=== PATIENT | male | born 1965 | race Two or more races ===

== ENCOUNTER 2024-08-29 18:37 | Inpatient (IN) | payer OTHER ==
[~2024-08-29] VITALS: Ht 182.9 cm; Wt 104.8 kg
[2024-08-29] MEDS ORDERED: OxyCODONE HCL 5 MG IR TABLET PO PRN (20:15)
[2024-08-29] MEDS: SENNOSIDES 8.6 MG TABLET PO SCH (20:54)
[2024-08-29] MEDS: DOCUSATE SODIUM 100 MG CAPSULE PO SCH (20:54)
[2024-08-29] MEDS: ETHYL ALCOHOL 62% ANTISEPTIC NASAL SANITIZER 0.6 ML AMPUL NASAL SCH (21:00)
[2024-08-29] MEDS: LevETIRAcetam 500 MG TABLET PO SCH (21:01)
[2024-08-29] MEDS: DEXAMETHASONE 4 MG TABLET PO SCH (21:32)
[2024-08-29] MEDS: ACETAMINOPHEN 325 MG TABLET PO PRN (21:47)
[2024-08-29 23:54] VITALS: BP 151/66; PULSE 50; RESP 18; O2SAT 98
[2024-08-30 01:20] VITALS: BP 107/72; PULSE 51; RESP 18; O2SAT 94
[2024-08-30 01:27] VITALS: O2SAT 94
[2024-08-30] MEDS: MELATONIN 5 MG TABLET PO PRN (01:51)
[2024-08-30 02:09] VITALS: O2SAT 98
[2024-08-30 08:14] LABS: BASOPHILS % (AUTO) 0.7 % (0.0-2.0); EOSINOPHILS % (AUTO) 0 % (1.0-6.0); HEMATOCRIT 43.9 % (41-53); HEMOGLOBIN 13.6 g/dL (13.5-17.5); LYMPHOCYTES # (AUTO) 0.9 K/uL (1.0-4.8); LYMPHOCYTES % (AUTO) 4.7 % (22.0-44.0); MEAN CORPUSCULAR HEMOGLOBIN 21.6 pg (26.0-34.0); MEAN CORPUSCULAR HGB CONC 31.1 G/dL (31.0-37.0); MEAN CORPUSCULAR VOLUME 69 fL (80-100); MONOCYTES # (AUTO) 1.6 K/uL (0.1-1.0); NEUTROPHILS # (AUTO) 17.3 K/uL (1.8-7.7); PLATELET COUNT (AUTO) 265 K/uL (150-450); RED BLOOD CELL COUNT(AUTO) 6.32 MIL/uL (4.50-5.90)
[2024-08-30 08:15] LABS: NEUTROPHILS % (AUTO) 86.6 % (40.0-70.0)
[2024-08-30 08:20] VITALS: BP 124/79; PULSE 53; RESP 18; TEMP 97.8; O2SAT 97
[2024-08-30 08:29] LABS: ALANINE AMINOTRANSFERASE 35 U/L (12-78); ALBUMIN 2.8 g/dL (3.4-5.0); ALKALINE PHOSPHATASE 67 U/L (46-116); ANION GAP 6 mmol/L (8-16); ASPARTATE AMINOTRANSFERASE 13 U/L (15-37); BILIRUBIN,TOTAL 0.6 mg/dL (0.1-1.0); CALCIUM, TOTAL 8.6 mg/dL (8.8-10.5); CARBON DIOXIDE 27 mmol/L (22-29); CHLORIDE 105 mmol/L (98-107); CREATININE 0.86 mg/dL (0.60-1.30); GLOMERULAR FILTR. RATE CALC > 60 mL/min (>60); GLUCOSE,RANDOM 126 mg/dL (70-110); POTASSIUM 4.4 mmol/L (3.5-5.1); SODIUM SERUM 138 mmol/L (136-145); TOTAL PROTEIN, SERUM 6.3 g/dL (6.4-8.2); UREA NITROGEN, BLOOD 38 mg/dL (7-18)
[2024-08-30 10:07] VITALS: O2SAT 99
[2024-08-30] MEDS: LIDOCAINE 5% TRANSDERMAL PATCH TD SCH (11:46)
[2024-08-30 20:00] VITALS: BP 117/72; PULSE 55; RESP 20; TEMP 97.5; O2SAT 97
[2024-08-30] MEDS: -LIDODERM PATCH NOTE- MISC SCH (21:03)
[2024-08-31 07:00] LABS: GLUCOMETER DEV NAME(LOC) 2WR.1D; GLUCOSE,POINT OF CARE 150 MG/DL (70-110)
[2024-08-31 08:20] VITALS: BP 116/72; PULSE 56; RESP 18; TEMP 98; O2SAT 99
[2024-08-31 15:38] VITALS: O2SAT 99
[2024-08-31 20:00] VITALS: O2SAT 96
[2024-09-01 03:40] VITALS: O2SAT 96
[2024-09-01 08:00] VITALS: BP 114/68; PULSE 50; RESP 18; TEMP 97.9; O2SAT 97
[2024-09-01 08:05] VITALS: PULSE 62
[2024-09-01] MEDS: DEXAMETHASONE 4 MG TABLET PO SCH (08:44)
[2024-09-01 20:18] VITALS: BP 107/60; PULSE 58; RESP 18; TEMP 97.7; O2SAT 95
[2024-09-02 03:58] VITALS: O2SAT 95
[2024-09-02 07:03] LABS: ANION GAP 4 mmol/L (8-16); CALCIUM, TOTAL 8.5 mg/dL (8.8-10.5); CARBON DIOXIDE 28 mmol/L (22-29); CHLORIDE 103 mmol/L (98-107); CREATININE 0.78 mg/dL (0.60-1.30); GLOMERULAR FILTR. RATE CALC > 60 mL/min (>60); GLUCOSE,RANDOM 129 mg/dL (70-110); POTASSIUM 4.7 mmol/L (3.5-5.1); SODIUM SERUM 135 mmol/L (136-145); UREA NITROGEN, BLOOD 33 mg/dL (7-18)
[2024-09-02 07:04] LABS: EOSINOPHILS % (AUTO) 0.1 % (1.0-6.0); HEMATOCRIT 45.2 % (41-53); HEMOGLOBIN 13.8 g/dL (13.5-17.5); LYMPHOCYTES # (AUTO) 0.6 K/uL (1.0-4.8); LYMPHOCYTES % (AUTO) 3.2 % (22.0-44.0); MEAN CORPUSCULAR HEMOGLOBIN 21.1 pg (26.0-34.0); MEAN CORPUSCULAR HGB CONC 30.4 G/dL (31.0-37.0); MEAN CORPUSCULAR VOLUME 69 fL (80-100); MONOCYTES # (AUTO) 1.2 K/uL (0.1-1.0); MONOCYTES % (AUTO) 6.3 % (2.0-9.0); NEUTROPHILS # (AUTO) 17.3 K/uL (1.8-7.7); PLATELET COUNT (AUTO) 232 K/uL (150-450); RED BLOOD CELL COUNT(AUTO) 6.52 MIL/uL (4.50-5.90); RED CELL DISTRIBUTION WIDTH 15.1 % (11.5-14.5); WHITE BLOOD COUNT (AUTO) 19.1 K/uL (4.5-11.0)
[2024-09-02 07:10] LABS: NEUTROPHILS % (AUTO) 90.4 % (40.0-70.0)
[2024-09-02 08:00] VITALS: BP 106/67; PULSE 42; RESP 19; TEMP 97.6; O2SAT 98
[2024-09-02 09:17] LABS: RBC MORPHOLOGY COMMENT ABNORMAL RBC MORPH
[2024-09-02] MEDS: FAMOTIDINE 20 MG TABLET PO SCH (15:13)
[2024-09-02 20:45] VITALS: BP 112/54; PULSE 57; RESP 18; TEMP 97.6; O2SAT 96
[2024-09-02 22:48] VITALS: O2SAT 96
[2024-09-03 08:00] VITALS: BP 106/67; PULSE 53; RESP 18; TEMP 97.5; O2SAT 96
[2024-09-03] MEDS: DOCUSATE SODIUM 250 MG CAPSULE PO SCH (08:33)
[2024-09-03] MEDS: DICLOFENAC SODIUM 1% 100 GM GEL [2GM] TP SCH (14:59)
[2024-09-03 20:10] VITALS: BP 109/60; PULSE 52; RESP 18; TEMP 98.6; O2SAT 96
[2024-09-03 21:55] VITALS: O2SAT 96
[2024-09-04 08:00] VITALS: BP 114/70; PULSE 54; RESP 17; TEMP 97.8; O2SAT 97
[2024-09-04] MEDS: DEXAMETHASONE 4 MG TABLET PO SCH (08:10)
[2024-09-04] MEDS: DOCUSATE SODIUM 283 MG/5 ML MINI-ENEMA PR PRN (17:39)
[2024-09-04] MEDS: SENNOSIDES 8.6 MG TABLET PO SCH (20:25)
[2024-09-04] MEDS: TraZODone HCL 50 MG TABLET PO SCH (20:26)
[2024-09-04 22:21] VITALS: O2SAT 98
[2024-09-04 22:37] VITALS: BP 114/74; PULSE 54; RESP 18; TEMP 97.2; O2SAT 98
[2024-09-05 08:00] VITALS: BP 104/48; PULSE 53; RESP 18; TEMP 97.8; O2SAT 99
[2024-09-05] MEDS: ENOXAPARIN SODIUM 30 MG/0.3 ML PF SYRINGE SQ SCH (10:02)
[2024-09-05 20:00] VITALS: BP 121/75; PULSE 55; RESP 18; TEMP 97.7; O2SAT 95
[2024-09-06 02:43] VITALS: O2SAT 96
[2024-09-06 08:00] VITALS: BP 108/65; PULSE 57; RESP 17; TEMP 97.9; O2SAT 95
[2024-09-06 20:00] VITALS: BP 113/62; PULSE 62; RESP 18; TEMP 97.5; O2SAT 97
[2024-09-06 21:00] VITALS: O2SAT 97
[2024-09-07 09:33] VITALS: BP 112/63; PULSE 49; RESP 19; TEMP 98.2; O2SAT 97
[2024-09-07 10:43] VITALS: O2SAT 97
[2024-09-07 20:01] VITALS: BP 122/73; PULSE 55; RESP 18; TEMP 98.3; O2SAT 94
[2024-09-07 22:52] VITALS: O2SAT 94
[2024-09-08 08:00] VITALS: BP 117/62; PULSE 48; RESP 18; TEMP 98.1; O2SAT 98
[2024-09-08 08:57] LABS: BASOPHILS % (AUTO) 0.4 % (0.0-2.0); EOSINOPHILS % (AUTO) 2.1 % (1.0-6.0); HEMATOCRIT 43.1 % (41-53); HEMOGLOBIN 13.3 g/dL (13.5-17.5); LYMPHOCYTES # (AUTO) 0.9 K/uL (1.0-4.8); LYMPHOCYTES % (AUTO) 9.3 % (22.0-44.0); MEAN CORPUSCULAR HEMOGLOBIN 21.7 pg (26.0-34.0); MEAN CORPUSCULAR HGB CONC 30.8 G/dL (31.0-37.0); MEAN CORPUSCULAR VOLUME 70 fL (80-100); MONOCYTES % (AUTO) 10.1 % (2.0-9.0); NEUTROPHILS # (AUTO) 7.6 K/uL (1.8-7.7); NEUTROPHILS % (AUTO) 78.1 % (40.0-70.0); PLATELET COUNT (AUTO) 207 K/uL (150-450); RED BLOOD CELL COUNT(AUTO) 6.12 MIL/uL (4.50-5.90); RED CELL DISTRIBUTION WIDTH 15.7 % (11.5-14.5); WHITE BLOOD COUNT (AUTO) 9.7 K/uL (4.5-11.0)
[2024-09-08 09:16] LABS: ANION GAP 3 mmol/L (8-16); CALCIUM, TOTAL 8.5 mg/dL (8.8-10.5); CARBON DIOXIDE 30 mmol/L (22-29); CHLORIDE 105 mmol/L (98-107); CREATININE 0.92 mg/dL (0.60-1.30); GLOMERULAR FILTR. RATE CALC > 60 mL/min (>60); GLUCOSE,RANDOM 132 mg/dL (70-110); POTASSIUM 3.9 mmol/L (3.5-5.1); SODIUM SERUM 138 mmol/L (136-145); UREA NITROGEN, BLOOD 22 mg/dL (7-18)
[2024-09-08 10:11] LABS: RBC MORPHOLOGY COMMENT ABNORMAL RBC MORPH
[2024-09-08 19:42] VITALS: BP 108/64; PULSE 67; RESP 18; TEMP 97.6; O2SAT 96
[2024-09-08 22:03] VITALS: O2SAT 96
[2024-09-08 22:04] VITALS: O2SAT 96
[2024-09-09 08:00] VITALS: BP 119/74; PULSE 64; RESP 18; TEMP 98.4; O2SAT 98
[2024-09-09 20:00] VITALS: BP 133/77; PULSE 60; RESP 18; TEMP 97.7; O2SAT 98
[2024-09-10 08:00] VITALS: BP 117/72; PULSE 58; RESP 18; TEMP 97.7; O2SAT 98
[2024-09-10 20:00] VITALS: BP 99/63; PULSE 65; RESP 18; TEMP 97.6; O2SAT 96
[2024-09-11 08:02] VITALS: BP 90/59; PULSE 51; RESP 17; TEMP 98; O2SAT 95
[2024-09-11 08:20] VITALS: BP 101/62; PULSE 53; RESP 17
[2024-09-11 20:02] VITALS: BP 111/61; PULSE 61; RESP 18; TEMP 97.9; O2SAT 100
[2024-09-11 23:06] VITALS: O2SAT 100
[2024-09-12 08:00] VITALS: BP 104/50; PULSE 58; RESP 18; TEMP 98.1; O2SAT 95
[2024-09-12] MEDS: DiphenhydrAMINE/ZINC ACET 30 GM CREAM TP PRN (10:57)
[2024-09-12 20:00] VITALS: BP 105/54; PULSE 53; RESP 18; TEMP 98.4; O2SAT 98
[2024-09-13 11:40] VITALS: BP 140/71; PULSE 71; RESP 18; TEMP 97.6; O2SAT 99
[2024-09-13 20:00] VITALS: BP 127/66; PULSE 59; RESP 18; TEMP 98.4; O2SAT 97
[2024-09-14 09:02] VITALS: BP 115/61; PULSE 70; RESP 18; TEMP 98.1; O2SAT 96
[2024-09-14 10:17] VITALS: O2SAT 96
[2024-09-14 20:12] VITALS: BP 107/72; PULSE 71; RESP 18; TEMP 97.8; O2SAT 96
[2024-09-14 21:44] VITALS: O2SAT 96
[2024-09-14] MEDS ORDERED: PANT-31 PO (22:19)
[2024-09-14] MEDS ORDERED: APIX5TAB PO (22:19)
[2024-09-14] MEDS ORDERED: FERR325T27 PO (22:22)
[2024-09-15 08:00] VITALS: BP 110/65; PULSE 59; RESP 18; TEMP 97.7; O2SAT 99
[2024-09-15 08:38] LABS: HEMOGLOBIN A1C 5.7 % (3.8-5.6)
[2024-09-15 08:47] LABS: ANION GAP 2 mmol/L (8-16); CARBON DIOXIDE 33 mmol/L (22-29); CHLORIDE 106 mmol/L (98-107); CREATININE 0.84 mg/dL (0.60-1.30); GLOMERULAR FILTR. RATE CALC > 60 mL/min (>60); GLUCOSE,RANDOM 100 mg/dL (70-110); SODIUM SERUM 141 mmol/L (136-145); UREA NITROGEN, BLOOD 12 mg/dL (7-18)
[2024-09-15 20:03] VITALS: BP 124/71; PULSE 55; RESP 18; TEMP 97.5; O2SAT 96
[2024-09-15 23:22] VITALS: O2SAT 96
[2024-09-16 08:00] VITALS: BP 114/70; PULSE 56; RESP 17; TEMP 97.9; O2SAT 96
[2024-09-16] MEDS ORDERED: LIDOCAINE 5% TRANSDERMAL PATCH TD PRN (11:15)
[2024-09-16 20:10] VITALS: BP 112/69; PULSE 64; RESP 18; TEMP 97.9; O2SAT 97
[2024-09-16 23:16] VITALS: O2SAT 97
[2024-09-16 23:20] VITALS: O2SAT 97
[2024-09-17] MEDS ORDERED: -LIDODERM PATCH NOTE- MISC PRN (06:45)
[2024-09-17 08:17] VITALS: BP 113/69; PULSE 56; RESP 18; TEMP 97.7; O2SAT 96
[2024-09-17 08:18] VITALS: O2SAT 96
[2024-09-17 19:40] VITALS: BP 107/80; PULSE 75; RESP 18; TEMP 98.2; O2SAT 98
[2024-09-17 19:42] VITALS: O2SAT 98
[2024-09-17 23:53] VITALS: O2SAT 98
[2024-09-18 07:35] VITALS: BP 112/68; PULSE 56; RESP 16; TEMP 97.8; O2SAT 96
[2024-09-18 08:00] VITALS: O2SAT 96
[2024-09-18 19:50] VITALS: BP 112/68; PULSE 60; RESP 18; TEMP 97.9; O2SAT 96
[2024-09-18] MEDS: DiphenhydrAMINE HCL 25 MG CAPSULE PO PRN (20:36)
[2024-09-19 03:00] VITALS: O2SAT 96
[2024-09-19 03:05] VITALS: O2SAT 96
[2024-09-19 08:00] VITALS: BP 122/81; PULSE 56; RESP 18; TEMP 97.8; O2SAT 96
[2024-09-19 19:55] VITALS: BP 116/61; PULSE 61; RESP 19; TEMP 98.2; O2SAT 95
[2024-09-19 20:00] VITALS: O2SAT 95
[2024-09-20] VITALS (14 sets, daily range): BP systolic 102–126; BP diastolic 56–86; PULSE 55–67; RESP 18–20; TEMP 97.5–98.6; O2SAT 95–99
[2024-09-21] VITALS (7 sets, daily range): BP systolic 105–116; BP diastolic 60–62; PULSE 54–57; RESP 18–19; TEMP 97.5–97.7; O2SAT 95–100
[2024-09-22 01:03] VITALS: BP 116/62; PULSE 54; RESP 18; TEMP 97.5; O2SAT 97
[2024-09-22 08:00] VITALS: BP 100/63; PULSE 50; RESP 19; TEMP 98.1; O2SAT 99
[2024-09-22 11:11] VITALS: BP 102/60; PULSE 55; RESP 18; TEMP 97.7; O2SAT 98
[2024-09-22 20:00] VITALS: BP 111/71; PULSE 61; RESP 20; TEMP 97.9; O2SAT 96
[2024-09-22 21:00] VITALS: O2SAT 96
[2024-09-23 08:00] VITALS: BP 116/71; PULSE 55; RESP 18; TEMP 97.9; O2SAT 96; O2SAT 98
[2024-09-23] MEDS ORDERED: DICL100G60 TP (08:57)
[2024-09-23] MEDS ORDERED: DIPH-1243 PO (08:57)
[2024-09-23] MEDS ORDERED: LEVE-71 PO (08:57)
[2024-09-23] MEDS ORDERED: FAMO20 PO (08:57)
[2024-09-23 09:43] VITALS: BP 116/71; PULSE 22; PULSE 55; RESP 18; TEMP 97.9; O2SAT 98
[2024-09-23 20:06] VITALS: BP 96/70; PULSE 66; RESP 18; TEMP 97.7; O2SAT 97
[2024-09-23 23:02] VITALS: O2SAT 97
[2024-09-23 23:09] VITALS: O2SAT 97
[2024-09-24 08:05] VITALS: BP 118/74; PULSE 64; RESP 19; TEMP 97.7; O2SAT 98
[2024-09-24] MEDS ORDERED: SENN-374 PO (09:34)
[2024-09-24] MEDS ORDERED: FAMO20 PO (09:34)
[2024-09-24] MEDS ORDERED: LEVE-71 PO (09:34)
[2024-09-24] MEDS ORDERED: ENOX40SY14 SQ (09:34)
[2024-09-24 10:46] VITALS: BP 118/74; PULSE 64; RESP 19; TEMP 97.7; O2SAT 98
[2024-09-24 20:00] VITALS: BP 113/76; PULSE 61; RESP 19; TEMP 97.6; O2SAT 96
[2024-09-24 21:00] VITALS: O2SAT 96
[2024-09-25 08:00] VITALS: BP 119/75; PULSE 61; RESP 18; TEMP 97.8; O2SAT 96
== END 2024-09-25 19:42 | disposition home health service (06) | DRG 57 ==
LOC: 2WR 18:54
PROVIDERS: ADMIT Physical Medicine & Rehabilitation; ATTEND Physical Medicine & Rehabilitation
DX: G81.94 Hemiplegia, unspecified affecting left nondominant side (principal); Z74.09 Other reduced mobility; E66.9 Obesity, unspecified; G47.33 Obstructive sleep apnea (adult) (pediatric); D72.829 Elevated white blood cell count, unspecified; G40.909 Epilepsy, unspecified, not intractable, without status epilepticus; R21 Rash and other nonspecific skin eruption; R00.1 Bradycardia, unspecified; R53.1 Weakness; M21.372 Foot drop, left foot; G31.84 Mild cognitive impairment of uncertain or unknown etiology; X58.XXXD Exposure to other specified factors, subsequent encounter; R49.0 Dysphonia; M25.512 Pain in left shoulder; M54.9 Dorsalgia, unspecified; R48.2 Apraxia; R26.89 Other abnormalities of gait and mobility; Z79.899 Other long term (current) drug therapy; Z68.31 Body mass index [BMI] 31.0-31.9, adult; Z88.5 Allergy status to narcotic agent; S22.42XG Multiple fractures of ribs, left side, subsequent encounter for fracture with delayed healing; Z86.011 Personal history of benign neoplasm of the brain
CPT/HCPCS: 80048; 80053; 82962; 83036; 83735; 85025; 87081; 92507; 92523; 93970; 97032; 97110; 97112; 97116; 97150; 97163; 97167; 97530; 97535; 99366; J1650; J8540